=== PATIENT | female | born 1950 | race Caucasian/White ===

== ENCOUNTER 2022-02-16 12:23 | Outpatient (CLI) | payer MEDICARE ==
[2022-02-16] MEDS ORDERED: Iopamidol 300 61% 100 ML VIAL FS ONE (16:11)
== END 2022-02-16 12:24 | disposition home or self-care (01) ==
LOC: CSHCT 12:23
PROVIDERS: ATTEND Internal Medicine Cardiovascular Disease
DX: Z01.810 Encounter for preprocedural cardiovascular examination (principal); I48.0 Paroxysmal atrial fibrillation; Z79.01 Long term (current) use of anticoagulants; Z98.890 Other specified postprocedural states; Z86.79 Personal history of other diseases of the circulatory system; K44.9 Diaphragmatic hernia without obstruction or gangrene
CPT/HCPCS: 71275; 80053; 81003; 85027; 85610; 85730; 86850; 86900; 86901; 93005; Q9967